=== PATIENT | female | born 1975 | race Caucasian/White ===

== ENCOUNTER → 2024-04-25 15:21 | Outpatient (CLI) | payer OTHER, SELFPAY ==
--- NOTE | 2024-04-25 15:32 | DI.MRI.S_ITS ---
PROCEDURE: MR ANKLE LT WO CON INDICATIONS: PAIN IN LEFT ANKLE AND JOINTS OF LEFT FOOT TECHNIQUE: Noncontrast sagittal T1 spin echo and T2 fast spin echo with fat saturation, axial proton density fast spin echo and T2 fast spin echo with fat saturation, coronal T1 spin echo and T2 fast spin echo with fat saturation through the ankle/hindfoot. COMPARISON: [facility] [place], CR, XR ANKLE 3 VIEWS WEIGHT BEARING LEFT, 08/14/2023, 15:20. FINDINGS: Image quality: Excellent. Bones and joints: There is prior internal fixation of distal fibular shaft and lateral malleolus with significant susceptibility artifacts. There is normal ankle alignment. No gross marrow edema. No acute fracture or dislocation. No gross osteochondral injuries of talar dome. Small amount of tibiotalar joint effusion, no loose bodies. Medial structures: The posterior tibialis tendon is thickened at the level of mid to distal talus and talonavicular joint. The flexor digitorum longus, and flexor hallucis longus tendons are intact. The posterior tibial neurovascular bundle appears normal within the tarsal tunnel, without extrinsic mass effect. The deltoid ligament and spring ligament are intact. Lateral structures: Evaluation of lateral structures is slightly limited due to significant susceptibility artifacts. Attenuated appearance of the anterior talofibular ligament near its lateral insertion concerning for at lease moderate grade partial-thickness tear . The calcaneofibular, and posterior talofibular ligaments appear intact. More superiorly, the anterior and posterior tibiofibular ligaments appear intact, as is the intermalleolar ligament. The tibiofibular syndesmosis is normal in width at 2 mm or less. The peroneus longus and brevis tendons demonstrate normal location and morphology. Adjacent bony peroneal tubercle and retrotrochlear prominence are normal in size. The sinus tarsi demonstrates normal fatty signal, without edema, fibrosis, or cyst formation. Visualized sinus tarsi components (cervical ligament, interosseous talocalcaneal ligament, roots of the inferior extensor retinaculum) appear normal. Anterior structures: The tibialis anterior, extensor hallucis longus, and extensor digitorum longus tendons appear intact. The dorsal talonavicular ligament appears intact. Posterior and plantar structures: Achilles tendon is intact. Medial and lateral bands of the plantar fascia are of normal thickness. No abductor digiti quinti muscle atrophy to suggest Gomez neuropathy. IMPRESSION: 1. Post ORIF changes in distal fibular shaft and lateral malleolus. Anatomic ankle alignment. No gross marrow edema. No acute fracture or dislocation. No osteochondral injuries of talar dome. 2. Slightly limited evaluation of lateral ankle structures due to susceptibility artifacts. Suggestion of at least moderate grade partial-thickness tear involving anterior talofibular ligament near its lateral insertion. 3. Tendinosis involving distal posterior tibialis tendon near its distal insertion. Rest of the ankle tendons are intact. Dictated by: Gary Mancini M.D. on 04/26/2024 at 9:29 Approved by: Gary Mancini M.D. on 04/26/2024 at 9:49
== END ==
PROVIDERS: Family Provider Internal Medicine; PCP Internal Medicine; Referring Provider Podiatrist; Visit Provider Podiatrist
DX: M25.472 Effusion, left ankle (principal); M25.572 Pain in left ankle and joints of left foot
CPT/HCPCS: 73721